=== PATIENT | female | born 1980 | race Caucasian/White ===

== ENCOUNTER 2020-07-27 08:25 | Emergency (ER) | payer OTHER ==
[~2020-07-27] VITALS: Ht 165.1 cm; Wt 136.1 kg
[2020-07-27 08:32] VITALS: BP 126/76
--- NOTE | 2020-07-27 08:40 | NUR ---
PATIENT AMBULATED TO BED 11.
--- NOTE | 2020-07-27 08:50 | NUR ---
Note undone in EDM - 07/27/20 at 0909 by MEDPMR 36 Y/O F BIB SELF FROM HOME, PATIENT PRESENTS TO ED WITH WHEEZING, SOB, NONPRODUCTIVE COUGH, CHILLS AND CHEST PAIN THAT STARTED 10 DAYS AGO. PT DENIES ANY FEVERS. PT TOOK 2 NEBULIZER [place] LAST NIGHT AND ALBUTEROL TODAY AT 0600 WITH NO RELIEF. LUNGS BILATERALLY WHEEZING INSPIRATORY AND EXPIRATORY. HEART RATE TACHY AND EVEN. PT SITTING IN BED WITH GOWN, X2 SIDE RAILS UP, BED IN LOWEST POSITION, CALL LIGHT WITHIN REACH. PMH: SHARI OSCAR POSITIVE IN SEPTEMBER AND FEB 2020 [facility] MED: ALBUTEROL
--- NOTE | 2020-07-27 08:50 | NUR ---
40 Y/O F BIB SELF FROM HOME, PT PRESENTS TO ED WITH C/O DIZZY AND BLURRY VISION FOR 2 WEEKS. PT DENIES ANY LOC, FEVER, COUGH, N&V, SOB OR CHEST PAIN. PT DENIES ANY PAIN AT THIS TIME. PT STATES SHE FEELS LIKE FALLING WHEN STANDING AND HAS BEEN FEELING LIKE SHE IS GOING TO PASS OUT. LUNGS CLEAR BILATERALLY THROUGHOUT INSPIRATORY AND EXPIRATORY. HEART RATE EVEN AND REGULAR. PT STATES IN THE PAST SHE HAS HAD ABNORMAL EKGS AND WAS REFERRED TO [employer], CURRENTLY UNABLE TO FIND ONE WITH CURRENT INSURANCE. PMH: NONE MED: NONE NKA
[2020-07-27] MEDS ORDERED: MECLIZINE 25 MG TAB PO ONE (09:20)
[2020-07-27 09:26] LABS: BASOPHILS % (AUTO) 0.4 % (0.0-2.0); EOSINOPHILS # (AUTO) 0.1 K/uL (0-0.4); HEMOGLOBIN 13.1 g/dL (12.0-16.0); LYMPHOCYTES # (AUTO) 1.4 K/uL (2.5-16.5); LYMPHOCYTES % (AUTO) 24.4 % (20.5-51.1); MEAN CORPUSCULAR HEMOGLOBIN 28 pg (27-31); MEAN CORPUSCULAR HGB CONC 34 g/dL (33-37); MEAN CORPUSCULAR VOLUME 83.9 fL (80-94); MONOCYTES # (AUTO) 0.5 K/uL (0.8-1.0); MONOCYTES % (AUTO) 8.9 % (1.7-9.3); NEUTROPHILS # (AUTO) 3.7 K/uL (1.8-7.7); NEUTROPHILS % (AUTO) 64.3 % (42.2-75.2); PLATELET COUNT (AUTO) 262 K/uL (140-450); RED BLOOD CELL COUNT(AUTO) 4.65 MIL/uL (4.20-5.40); RED CELL DISTRIBUTION WIDTH 13.3 % (11.6-13.7); WHITE BLOOD COUNT (AUTO) 5.8 K/uL (4.8-10.8)
--- NOTE | 2020-07-27 09:40 | NUR ---
EYE ASSESSMENT WITH CONTACTS BOTH 20/013 R 20/15 L 20/15
[2020-07-27 09:46] LABS: ALBUMIN 3.4 g/dL (3.4-5.0); ANION GAP 10.1 (8-16); CREATININE 0.8 mg/dL (0.6-1.3); POTASSIUM 4.1 mmol/L (3.5-5.1); TOTAL BILIRUBIN 0.4 mg/dL (0.0-1.0)
[2020-07-27] MEDS ORDERED: ACETAMINOPHEN EXTRA STRENGTH 500 MG TAB PO ONE (10:05)
[2020-07-27] MEDS ORDERED: LIDOCAINE 2% 1000 MG/50 ML VIAL INJ ONE (12:00)
--- NOTE | 2020-07-27 12:05 | NUR ---
LUMBAR PUNCTURE TRAY AT BED SIDE WITH STERILE GLOVES AT BED SIDE.
--- NOTE | 2020-07-27 12:10 | NUR ---
CONSENT FOR LUMBAR PUNCTURE SIGNED BY PATIENT.
--- NOTE | 2020-07-27 13:18 | NUR ---
PT WALKED OUT OF BED AND WENT TO BATHROOM
[2020-07-27 14:10] VITALS: BP 136/85
--- NOTE | 2020-07-27 14:10 | NUR ---
PT REQUESTED TO SPEAK WITH ERMD BEFORE LEAVING. ERMD IN ROOM SPEAKING WITH PT
--- NOTE | 2020-07-27 14:11 | NUR ---
Patient discharged with v/s stable. Written and verbal after care instructions given and explained. Patient verbalized understanding. Ambulatory with steady gait. All questions addressed prior to discharge. Advised to follow up with PMD.
== END 2020-07-27 14:11 | disposition home or self-care (01) ==
LOC: MED 08:25
DX: H53.8 Other visual disturbances (principal); R42 Dizziness and giddiness; G93.2 Benign intracranial hypertension
CPT/HCPCS: 36415; 62270; 70450; 80053; 81002; 84484; 84702; 85025; 93005; 99285; J2001; J8597

== ENCOUNTER 2022-02-07 23:53 | Emergency (ER) | payer OTHER ==
[~2022-02-07] VITALS: Ht 165.1 cm; Wt 131.5 kg
--- NOTE | 2022-02-08 00:03 | NUR ---
PT TAKEN TO BED 10
[2022-02-08 00:15] VITALS: BP 139/84
--- NOTE | 2022-02-08 00:47 | NUR ---
PT BEING EVALUATED BY DR REID
[2022-02-08 02:53] VITALS: BP 120/70
== END 2022-02-08 02:53 | disposition home or self-care (01) ==
LOC: MED 23:53
DX: R51.9 Headache, unspecified (principal)
CPT/HCPCS: 71045; 82803; 99284; Q0092